=== PATIENT | female | born 1995 | race Hispanic/Latino ===

== ENCOUNTER 2023-12-26 01:20 | Emergency (ER) | payer OTHER ==
[2023-12-26 04:13] LABS: BLOOD UREA NITROGEN 15 MG/DL (9-23); CALCIUM LEVEL 9.4 MG/DL (8.5-10.1); CARBON DIOXIDE LEVEL 25 MMOL/L (20-31); CHLORIDE LEVEL 107 MMOL/L (98-107); CREATININE FOR GFR 0.58 MG/DL (0.55-1.30); GLOMERULAR FILTRATION RATE > 60.0 (>60); GLUCOSE, FASTING 88 MG/DL (60-100); SODIUM LEVEL 136 MMOL/L (136-145)
[2023-12-26 04:15] LABS: HEMATOCRIT 37.4 % (36.0-47.0); HEMOGLOBIN 12.9 g/dl (12.0-15.5); MEAN CORPUSCULAR HEMOGLOBIN 31.2 pg (27.0-33.0); MEAN CORPUSCULAR HGB CONC 34.5 g/dl (32.0-36.5); MEAN CORPUSCULAR VOLUME 90.3 fl (80.0-96.0); PLATELET COUNT, AUTOMATED 282 10^3/uL (150-450); RED BLOOD COUNT 4.14 10^6/uL (4.00-5.40); WHITE BLOOD COUNT 6.6 10^3/uL (4.0-10.0)
[2023-12-26 04:22] LABS: HCG, SERUM QUALITATIVE POSITIVE (NEGATIVE)
[2023-12-26] MEDS ORDERED: MULTTAB20 PO (07:36)
[2023-12-26] MEDS ORDERED: HOME MED LIST COMPLETE! XX SCH (07:40)
[2023-12-26 09:28] VITALS: TEMP 97.4
[2023-12-26 09:53] VITALS: BP 110/64; O2SAT 99
== END 2023-12-26 09:55 | disposition home or self-care (01) ==
LOC: M ED 01:20
DX: O20.0 Threatened abortion (principal); Z3A.01 Less than 8 weeks gestation of pregnancy; Z79.810 Long term (current) use of selective estrogen receptor modulators (SERMs)

== ENCOUNTER 2024-02-15 15:42 | Emergency (ER) | payer OTHER ==
[~2024-02-15] VITALS: Ht 149.9 cm; Wt 54.4 kg
[~2024-02-15 15:42] MED LIST: MULTTAB20 PO
[2024-02-15 16:42] LABS: BASO % 0.3 % (0.0-1.0); EOS % 0.4 % (0.0-3.0); HEMATOCRIT 33.6 % (36.0-47.0); HEMOGLOBIN 11.5 g/dl (12.0-15.5); LYMPH # 1.9 10^3/uL (1.5-5.0); LYMPH % 26.5 % (24.0-44.0); MEAN CORPUSCULAR HEMOGLOBIN 30.3 pg (27.0-33.0); MEAN CORPUSCULAR HGB CONC 34.2 g/dl (32.0-36.5); MEAN CORPUSCULAR VOLUME 88.7 fl (80.0-96.0); MONO # 0.7 10^3/uL (0.0-0.8); MONO % 10.1 % (2.0-8.0); NEUTROPHILS # 4.5 10^3/uL (1.5-8.5); NEUTROPHILS % 62.4 % (36.0-66.0); PLATELET COUNT, AUTOMATED 258 10^3/uL (150-450); RED BLOOD COUNT 3.79 10^6/uL (4.00-5.40); WHITE BLOOD COUNT 7.2 10^3/uL (4.0-10.0)
[2024-02-15 17:07] LABS: BLOOD UREA NITROGEN 14 MG/DL (9-23); CALCIUM LEVEL 9.7 MG/DL (8.5-10.1); CARBON DIOXIDE LEVEL 25 MMOL/L (20-31); CHLORIDE LEVEL 102 MMOL/L (98-107); CREATININE FOR GFR 0.61 MG/DL (0.55-1.30); GLOMERULAR FILTRATION RATE > 60.0 (>60); GLUCOSE, FASTING 84 MG/DL (60-100); POTASSIUM SERUM 3.9 MMOL/L (3.5-5.1); SODIUM LEVEL 135 MMOL/L (136-145)
[2024-02-15 17:32] LABS: HCG, SERUM QUANTITATIVE 118914.1 MIU/ML (<4.2)
[2024-02-15] MEDS: ACETAMINOPHEN 325 MG TAB PO ONE (19:09)
[2024-02-15 19:55] VITALS: BP 112/66; TEMP 95.7; O2SAT 100
[2024-02-15 22:08] LABS: GC DNA AMPLIFICATION NEGATIVE (NEGATIVE)
[2024-02-15 22:41] LABS: Trichomonas vaginalis (AMP) NOT DETECTED (NEGATIVE)
== END 2024-02-15 20:56 | disposition home or self-care (01) ==
LOC: M ED 15:42
DX: O26.892 Other specified pregnancy related conditions, second trimester (principal); R10.2 Pelvic and perineal pain; O34.82 Maternal care for other abnormalities of pelvic organs, second trimester; N83.292 Other ovarian cyst, left side; O46.92 Antepartum hemorrhage, unspecified, second trimester; Z3A.13 13 weeks gestation of pregnancy

== ENCOUNTER 2024-03-07 13:31 | Emergency (ER) | payer OTHER ==
[~2024-03-07] VITALS: Ht 149.9 cm; Wt 54.7 kg
[2024-03-07 18:10] VITALS: BP 105/60; TEMP 97.9; O2SAT 100
== END 2024-03-07 18:13 | disposition home or self-care (01) ==
LOC: M ED 13:31
DX: O26.892 Other specified pregnancy related conditions, second trimester (principal); Z3A.16 16 weeks gestation of pregnancy; W19.XXXA Unspecified fall, initial encounter; Y92.9 Unspecified place or not applicable; Y93.9 Activity, unspecified; Y99.9 Unspecified external cause status

== ENCOUNTER 2024-04-03 07:04 | Emergency (ER) | payer OTHER ==
[~2024-04-03] VITALS: Ht 152.4 cm; Wt 56.9 kg
[2024-04-03] MEDS ORDERED: AMOX875T PO (07:51)
[2024-04-03 07:57] VITALS: BP 103/59; TEMP 97.8; O2SAT 100
== END 2024-04-03 07:59 | disposition home or self-care (01) ==
LOC: M ED 07:04
DX: O99.891 Other specified diseases and conditions complicating pregnancy (principal); J01.90 Acute sinusitis, unspecified; Z3A.20 20 weeks gestation of pregnancy; R04.0 Epistaxis

== ENCOUNTER 2024-07-20 17:49 | Emergency (ER) | payer OTHER ==
[~2024-07-20 17:49] MED LIST changes: +AMOX875T PO
== END 2024-07-20 20:13 | disposition admitted as inpatient to this hospital (09) ==
LOC: M ED 17:49
DX: Z53.21 Procedure and treatment not carried out due to patient leaving prior to being seen by health care provider (principal)

== ENCOUNTER 2024-07-20 18:01 | Outpatient (CLI) | payer OTHER ==
[~2024-07-20] VITALS: Ht 149.9 cm; Wt 65.0 kg
[2024-07-20] MEDS ORDERED: HOME MED LIST COMPLETE! XX SCH (18:15)
[2024-07-20 18:23] VITALS: BP 108/68
[2024-07-20 19:28] LABS: KETONE, URINE AUTO RFX NEGATIVE (NEGATIVE); MUCUS, URINE RFX SMALL (NEGATIVE); NITRITE, URINE AUTO RFX NEGATIVE (NEGATIVE); RBC, URINE AUTO RFX 1 /HPF (0-3); SQUAM EPITHELIAL CELL UR AURFX 4 /HPF (0-6); WBC, URINE AUTO RFX 10 /HPF (0-3)
[2024-07-20 19:35] LABS: LEUKOCYTE ESTERASE UR AUTO RFX TRACE (NEGATIVE)
[2024-07-20] MEDS: FLUCONAZOLE 50MG TABLET PO ONE (22:07)
== END 2024-07-20 22:08 | disposition home or self-care (01) ==
LOC: M LDO 18:01
PROVIDERS: ATTEND Advanced Practice Midwife
DX: O26.853 Spotting complicating pregnancy, third trimester (principal); O26.893 Other specified pregnancy related conditions, third trimester; M54.50 Low back pain, unspecified; Z3A.35 35 weeks gestation of pregnancy
CPT/HCPCS: 59025; 81001; 87086; G0463

== ENCOUNTER 2024-08-05 19:22 | Outpatient (CLI) | payer OTHER ==
[~2024-08-05] VITALS: Ht 149.9 cm; Wt 66.7 kg
[2024-08-05 19:41] VITALS: BP 115/68
[2024-08-05] MEDS: ACETAMINOPHEN 500 MG TAB PO ONE (20:15)
[2024-08-05 20:31] VITALS: BP 110/65
== END 2024-08-05 21:14 | disposition home or self-care (01) ==
LOC: M LDO 19:22
PROVIDERS: ATTEND Specialist
DX: O26.893 Other specified pregnancy related conditions, third trimester (principal); R10.30 Lower abdominal pain, unspecified; M54.50 Low back pain, unspecified; W01.0XXA Fall on same level from slipping, tripping and stumbling without subsequent striking against object, initial encounter; Y92.9 Unspecified place or not applicable; Y93.9 Activity, unspecified; Y99.9 Unspecified external cause status; Z3A.38 38 weeks gestation of pregnancy
CPT/HCPCS: 59025; G0463